=== PATIENT | female | born 1960 | race Caucasian/White ===

== ENCOUNTER 2017-05-09 08:56 | Emergency (ER) | payer BC, OTHER ==
[~2017-05-09] VITALS: Ht 170.2 cm; Wt 81.7 kg
[2017-05-09] MEDS ORDERED: PLAVIX 75 MG TA75 M1 PO (09:11)
[2017-05-09] MEDS ORDERED: HYDROXYCHLOROQ200 M1 PO (09:11)
[2017-05-09] MEDS ORDERED: FISH OIL 1,001000 M2 PO (09:11)
[2017-05-09] MEDS ORDERED: LIPITOR 20 MG T20 M1 PO (09:11)
[2017-05-09] MEDS ORDERED: MOBIC7.5 M1 PO (09:12)
[2017-05-09] MEDS ORDERED: TRAZODONE HCL100 MG PO (09:12)
[2017-05-09] MEDS ORDERED: ZONEGRAN100 MG PO (09:12)
[2017-05-09] MEDS ORDERED: PILOCARPINE HCL5 M1 PO (09:12)
[2017-05-09] MEDS ORDERED: PLEXUS BIOCLEANSE (09:13)
[2017-05-09] MEDS ORDERED: PLEXUS PROBIO (09:13)
[2017-05-09 09:41] LABS: ABSOLUTE EOSINOPHILS 0.2 thou/uL (0.0-0.7); ABSOLUTE LYMPHOCYTES 1.1 thou/uL (0.8-5.3); ABSOLUTE MONOCYTES 0.3 thou/uL (0.0-1.2); ABSOLUTE NEUTROPHILS 3.4 thou/uL (1.6-8.1); BASOPHILS 0.6 %; EOSINOPHILS 4.7 %; HEMATOCRIT 39.2 % (37.0-47.0); HEMOGLOBIN 13.6 gm/dL (12.0-15.0); LYMPHOCYTES 22.4 %; MCH 30.8 pg (26.0-34.0); MCHC 34.7 g/dL (28.0-37.0); MCV 88.6 fL (80.0-100.0); MONOCYTES 5.7 %; MPV 7.6 fl. (7.2-11.1); NUCLEATED RBCS 0 /100WBC; PLATELET COUNT* 235 thou/uL (150-400); POLYS 66.6 %; RBC 4.42 mil/uL (4.20-5.00)
[2017-05-09 09:46] LABS: ANION GAP 5 mmol/L (7-16); BUN 17 mg/dL (7-18); CALCIUM 8.8 mg/dL (8.5-10.1); CHLORIDE 108 mmol/L (98-107); CO2 28 mmol/L (21-32); CREATININE 0.7 mg/dL (0.6-1.3); GLUCOSE 105 mg/dL (70-99); POTASSIUM 4.5 mmol/L (3.5-5.1); SODIUM 141 mmol/L (136-145)
[2017-05-09 09:53] LABS: ALBUMIN 3.6 g/dL (3.4-5.0); ALKALINE PHOSPHATASE 58 U/L (46-116); SGOT 17 U/L (15-37); SGPT 19 U/L (30-65); TOTAL BILIRUBIN 0.9 mg/dL (<0.1-1.0); TOTAL PROTEIN 7.1 g/dL (6.4-8.2); TROPONIN-I LEVEL <0.06 ng/mL (<0.06)
[2017-05-09] MEDS ORDERED: ANTIVERT25 MG PO (11:08)
[2017-05-09] MEDS ORDERED: ZOFRAN ODT4 MG PO (11:08)
--- NOTE | 2017-05-09 11:10 | EKG ---
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
[2017-05-09 11:16] VITALS: BP 110/61
== END 2017-05-09 11:17 | disposition home or self-care (01) ==
LOC: M.ERS 08:56
PROVIDERS: Emergency Medicine Emergency Medical Services
DX: R42 Dizziness and giddiness (principal)

== ENCOUNTER 2019-03-19 14:29 | Emergency (ER) | payer BC, OTHER ==
[~2019-03-19] VITALS: Ht 167.6 cm; Wt 122.5 kg
[~2019-03-19 14:29] MED LIST: ANTIVERT25 MG PO; FISH OIL 1,001000 M2 PO; HYDROXYCHLOROQ200 M1 PO; LIPITOR 20 MG T20 M1 PO; MOBIC7.5 M1 PO; PILOCARPINE HCL5 M1 PO; PLAVIX 75 MG TA75 M1 PO; PLEXUS BIOCLEANSE; PLEXUS PROBIO; TRAZODONE HCL100 MG PO; ZOFRAN ODT4 MG PO; ZONEGRAN100 MG PO
[2019-03-19 16:14] VITALS: BP 154/91
== END 2019-03-19 16:14 | disposition home or self-care (01) ==
LOC: M.ERS 14:29
DX: S90.31XA Contusion of right foot, initial encounter (principal); E78.00 Pure hypercholesterolemia, unspecified; Z88.0 Allergy status to penicillin; Z88.1 Allergy status to other antibiotic agents; Z88.2 Allergy status to sulfonamides; W22.8XXA Striking against or struck by other objects, initial encounter; Y93.89 Activity, other specified; Y92.89 Other specified places as the place of occurrence of the external cause; Y99.8 Other external cause status

== ENCOUNTER 2019-04-08 23:59 | Emergency (ER) | payer BC, OTHER ==
[~2019-04-08] VITALS: Ht 167.6 cm; Wt 124.7 kg
[2019-04-09 00:55] LABS: INFLUENZA A ANTIGEN Negative (Negative)
[2019-04-09] MEDS ORDERED: TESSALON PERLE100 M1 PO (01:06)
[2019-04-09] MEDS ORDERED: ZOFRAN ODT4 MG DISSOLVE (01:06)
[2019-04-09 01:50] VITALS: BP 149/90
== END 2019-04-09 01:51 | disposition home or self-care (01) ==
LOC: M.ERS 23:59
PROVIDERS: Emergency Medicine Emergency Medical Services
DX: J10.1 Influenza due to other identified influenza virus with other respiratory manifestations (principal); E78.00 Pure hypercholesterolemia, unspecified; Z88.1 Allergy status to other antibiotic agents; Z88.0 Allergy status to penicillin; Z88.2 Allergy status to sulfonamides

== ENCOUNTER 2019-11-19 12:57 | Emergency (ER) | payer BC ==
[~2019-11-19] VITALS: Ht 170.2 cm; Wt 122.5 kg
[~2019-11-19 12:57] MED LIST changes: +TESSALON PERLE100 M1 PO; +ZOFRAN ODT4 MG DISSOLVE
[2019-11-19] MEDS ORDERED: ELIQUIS2.5 MG PO (13:09)
[2019-11-19 13:37] LABS: ABSOLUTE EOSINOPHILS 0.2 thou/uL (0.0-0.7); ABSOLUTE LYMPHOCYTES 1.6 thou/uL (0.8-5.3); ABSOLUTE MONOCYTES 0.4 thou/uL (0.0-1.2); ABSOLUTE NEUTROPHILS 2.5 thou/uL (1.6-8.1); EOSINOPHILS 3.7 %; HEMATOCRIT 39.4 % (37.0-47.0); HEMOGLOBIN 13.8 gm/dL (12.0-15.0); MCHC 34.9 g/dL (28.0-37.0); MPV 7.5 fl. (7.2-11.1); NUCLEATED RBCS 0 /100WBC; PLATELET COUNT* 275 thou/uL (150-400); POLYS 53.3 %; RBC 4.43 mil/uL (4.20-5.00); RDW-CV 13.5 % (10.5-14.5); WBC 4.7 thou/uL (4.0-11.0)
[2019-11-19 13:45] LABS: CALCIUM 8.6 mg/dL (8.5-10.1); CREATININE 0.8 mg/dL (0.6-1.3); POTASSIUM 4.2 mmol/L (3.5-5.1)
[2019-11-19 13:46] LABS: APTT 25.2 Seconds (25.0-31.3); PROTIME 10.6 Seconds (9.20-11.50)
[2019-11-19 13:56] LABS: ALBUMIN 3.8 g/dL (3.4-5.0); TOTAL BILIRUBIN 0.6 mg/dL (<0.1-1.0); TOTAL PROTEIN 7.2 g/dL (6.4-8.2)
[2019-11-19] MEDS ORDERED: VENTOLIN HFA 1818 GM INH (14:32)
[2019-11-19] MEDS ORDERED: ZPAK PO (14:32)
[2019-11-19] MEDS ORDERED: TESSALON PERLE100 MG PO (14:32)
[2019-11-19 14:35] VITALS: BP 141/70
--- NOTE | 2019-11-19 17:00 | EKG ---
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 : 1960 Requested By: Janina Solis Order Number: [id number] MD: Kwabena Juan Measurements Intervals [place] Rate: 80 P: 79 [place]: 170 QRS: 48 QRSD: 146 T: 41 QT: 419 QTc: 484 Interpretive Statements Sinus rhythm Ventricular premature complex Right bundle branch block Compared to ECG 05/09/2017 09:27:45 Ventricular premature complex(es) now present Right bundle-branch block now present Electronically Signed On 11-19-2019 17:00:22 CDT by Kawbena Juan [email or web address] <ELECTRONICALLY SIGNED> By: Kwabena Juan MD, [facility] 11/19/19 1700 1322 1322 Kwabena Juan MD, [facility] /EPI
== END 2019-11-19 14:41 | disposition home or self-care (01) ==
LOC: M.ERS 12:57
PROVIDERS: Nurse Practitioner Family
DX: J06.9 Acute upper respiratory infection, unspecified (principal); R73.9 Hyperglycemia, unspecified; Z20.828 Contact with and (suspected) exposure to other viral communicable diseases; E78.00 Pure hypercholesterolemia, unspecified; Z90.710 Acquired absence of both cervix and uterus; Z90.89 Acquired absence of other organs; Z88.1 Allergy status to other antibiotic agents; Z88.0 Allergy status to penicillin; Z88.2 Allergy status to sulfonamides

== ENCOUNTER 2020-02-17 09:19 | Emergency (ER) | payer BC ==
[~2020-02-17] VITALS: Ht 167.6 cm; Wt 127.0 kg
[~2020-02-17 09:19] MED LIST changes: +ELIQUIS2.5 MG PO; +TESSALON PERLE100 MG PO; +VENTOLIN HFA 1818 GM INH; +ZPAK PO
[2020-02-17] MEDS ORDERED: DRIZALMA SPRINK30 MG PO (09:47)
[2020-02-17] MEDS ORDERED: TRAMADOL 50 MG50 MG PO (09:47)
[2020-02-17] MEDS ORDERED: NORCO 5-325 TA1 EAC2 PO (11:31)
[2020-02-17 11:38] VITALS: BP 144/78
== END 2020-02-17 11:39 | disposition home or self-care (01) ==
LOC: M.ERS 09:19
DX: S86.812A Strain of other muscle(s) and tendon(s) at lower leg level, left leg, initial encounter (principal); E78.00 Pure hypercholesterolemia, unspecified; Z90.710 Acquired absence of both cervix and uterus; Z90.89 Acquired absence of other organs; Z88.1 Allergy status to other antibiotic agents; Z88.0 Allergy status to penicillin; Z88.2 Allergy status to sulfonamides; X50.1XXA Overexertion from prolonged static or awkward postures, initial encounter; Y93.89 Activity, other specified; Y92.89 Other specified places as the place of occurrence of the external cause; Y99.8 Other external cause status

== ENCOUNTER 2021-02-03 20:03 | Emergency (ER) | payer BC ==
[~2021-02-03] VITALS: Ht 167.6 cm; Wt 117.9 kg
[~2021-02-03 20:03] MED LIST changes: +DRIZALMA SPRINK30 MG PO; +NORCO 5-325 TA1 EAC2 PO; +TRAMADOL 50 MG50 MG PO
[2021-02-03 23:11] VITALS: BP 126/78
== END 2021-02-03 23:12 | disposition home or self-care (01) ==
LOC: M.ERS 20:03
DX: M96.831 Postprocedural hemorrhage of a musculoskeletal structure following other procedure (principal); E78.00 Pure hypercholesterolemia, unspecified; Z90.710 Acquired absence of both cervix and uterus; Z90.89 Acquired absence of other organs; Z98.890 Other specified postprocedural states